=== PATIENT | female | born 1930 | race Caucasian/White ===

== ENCOUNTER 2017-04-12 10:55 | Inpatient (IN) | payer OTHER, BC ==
--- NOTE | 2017-04-12 10:56 | PDOC ---
Attending Attestation - Resident Resident Name: Kaushal Muhammad - HPI HPI: 04/12/17 11:50 Pt presents to the ED complaining of severe flank pain, nausea and vomiting that have been persistent for 5 days. Patient was seen in the ED 5 days ago for the same complaint, and found to have a renal stone. CT on 04/07 showed 8mm stone with moderate hydroureter. Patient has continued to experience pain despite oxycodone. Denies fever or dysuria. 04/12/17 12:02 - Physicial Exam PE: 04/12/17 12:08 agree with resident exam. Patient is actively vomiting on my exam. Abdomen is non tender. + CVA Tenderness. Appears uncomfortable. - Medical Decision Making 04/12/17 12:11 Pt presemts to the ED complaining of persistent nausea, vomiting and flank pain after diagnosed with renal stone 5 days ago. Given that her pain has not resolved after 5 days, I believe that she will need surgical intervention in order for the stone to pass. Will admit to medicine. Labs also show severe hyponatremia. Will consult urology and renal.
[2017-04-12] MEDS ORDERED: morphine CARPU-JECT 2 MG/1 ML DISP.SYRIN IVPUSH ONE (11:20)
[2017-04-12] MEDS ORDERED: ONDANSETRON 4 MG/2 ML VIAL IVPUSH ONE (11:20)
[2017-04-12] MEDS ORDERED: morphine CARPU-JECT 2 MG/1 ML DISP.SYRIN ONE (11:21)
[2017-04-12] MEDS ORDERED: ONDANSETRON 4 MG/2 ML VIAL ONE ×2 (11:22→15:36)
--- NOTE | 2017-04-12 11:27 | PDOC ---
History of Present Illness - General Chief Complaint: Pain, Acute Stated Complaint: FLANK PAIN - History of Present Illness Initial Comments: 04/12/17 11:22 86 yr old F with h/o HTN, hypothryoidism, uterine ca. s/p hysterectomy last year , and recent L ureteral stone who presents with left sided flank and lower abdominal pain. Patient reports worsening and unremitting (03/09) crampy colicky left flank/side pain and diffuse lower abdominal pain this AM, despite having no pain yesterday. + Nausea/dry retching without vomitting this AM. Pain refractory to Ibrupforen 400 mg, Tylenol 325 mg this AM, and 1/2 (0.5) Oxycodone tab. Endorses decreased urinary frequency, and lightheadedness. Denies fevers/chills, dysuria, hematuria. Prior CT (04/08) read L 8 mm ureteral stone with mild hydronephrosis. Reports that she was unable to obtain f/u urology appointment with Dr. Adame. PCP Dr. Jeyson Jernigan. Patient ate breakfast this AM. No chest pain, SOB, diarrhea constipation, blood per rectum,vaginal bleed, LOC. 04/12/17 15:26 Past History - Past Medical History Allergies/Adverse Reactions: Allergies Allergy/AdvReac Type Severity Reaction Status Date / Time cephalexin monohydrate Allergy Severe Verified 04/12/17 10:56 [From Keflex] Penicillins Allergy Severe Verified 04/12/17 10:56 Home Medications: Ambulatory Orders Levothyroxine [Synthroid -] 125 mcg PO DAILY 11/01/15 Losartan/Hydrochlorothiazide [Losartan-Hctz 100-12.5 mg Tab] 1 tab PO DAILY 08/13 Metoprolol Tartrate [Lopressor -] 25 mg PO HS 11/01/15 Acetaminophen [Tylenol] 325 mg PO QID #30 tablet 04/08/17 Ibuprofen 400 mg PO QID #30 tablet 04/08/17 Oxycodone HCl 0.5 tablet PO QID PRN #8 tablet MDD 2 tablets 04/08/17 Tamsulosin HCl [Flomax] 0.4 mg PO DAILY #7 capsule 04/08/17 Ondansetron [Zofran Odt -] 4 - 8 mg SL BID #20 od.tablet 04/10/17 Cholecalciferol (Vitamin D3) [Vitamin D3] 1,000 unit PO DAILY 04/12/17 Anemia: No COPD: No HTN: Yes Thyroid Disease: Yes (HYPOTHYROIDISM) - Surgical History Appendectomy: Yes ( A CHILD) - Suicide/Smoking/Psychosocial Hx Smoking History: Never smoked Have you smoked in the past 12 months: No Hx Alcohol Use: No Drug/Substance Use Hx: No Substance Use Type: None Hx Substance Use Treatment: No Review of Systems - Review of Systems Comments:: 04/12/17 11:53 GENERAL/CONSTITUTIONAL: No fever or chills. No weakness. HEAD, EYES, EARS, NOSE AND THROAT: No change in vision. No ear pain or discharge. No sore throat.- CARDIOVASCULAR: No chest pain or shortness of breath RESPIRATORY: No cough, wheezing, or hemoptysis. GASTROINTESTINAL: No nausea, vomiting, diarrhea or constipation. GENITOURINARY: No dysuria, frequency, or change in urination. MUSCULOSKELETAL: No joint or muscle swelling or pain. No neck or back pain. SKIN: No rash NEUROLOGIC: No headache, vertigo, loss of consciousness, or change in strength/ sensation. ENDOCRINE: No increased thirst. No abnormal weight change HEMATOLOGIC/LYMPHATIC: No anemia, easy bleeding, or history of blood clots. ALLERGIC/IMMUNOLOGIC: No hives or skin allergy. *Physical Exam - Vital Signs Last Vital Signs Temp Pulse Resp BP Pulse Ox 98.3 F 59 L 18 158/77 95 04/12/17 10:55 04/12/17 10:55 04/12/17 10:55 04/12/17 10:55 04/12/17 10:55 - Physical Exam Comments: 04/12/17 11:53 GENERAL: Awake, alert, and fully oriented, and anxious appearing. HEAD: No signs of trauma, normocephalic, atraumatic EYES: PERRLA, EOMI, sclera anicteric, conjunctiva clear ENT: hearing grossly normal, nares patent, oropharynx clear without exudates. Moist mucosa NECK: Normal ROM,no JVD, or masses LUNGS: No distress, speaks full sentences, clear to auscultation bilaterally HEART: Regular rate and rhythm, normal S1 and S2, no murmurs, rubs or gallops, peripheral pulses normal and equal bilaterally. ABDOMEN: Soft, nontender, normoactive bowel sounds. No guarding, no rebound. No masses. Neg CVA ttp. Mild suprpaubic ttp. Absent rigidity. Neg logan sign or McBurney point ttp . EXTREMITIES : Normal inspection, Normal range of motion, no edema. No clubbing or cyanosis. SKIN: Warm, Dry, normal turgor, no rashes or lesions noted. ED Treatment Course - LABORATORY CBC & Chemistry Diagram: 04/12/17 11:15 04/12/17 11:15 - RADIOLOGY Radiology Studies Ordered: Category Date Time Status KIDNEY / RENAL US [US] Stat Ultrasound 04/12/17 11:19 Ordered Medical Decision Making - Medical Decision Making 04/12/17 13:10 86 yr old F with h/o HTN, hypothryoidism, uterine ca. s/p hysterectomy last year , and recent L ureteral stone who presents with L crampy colicky left flank/ side pain and diffuse lower abdominal pain this AM,following recent ED visit with L 8 mm ureteral stone with mild hydronephrosis. Endorses decreased urinary frequency, and lightheartedness. Pain refractory to Ibrupforen 400 mg, Tylenol 325 mg this AM, and 1/2 (0.5) Oxycodone tab. Denies fevers/chills, dysuria, hematuria. Physical exam is benign and patient hemodynamically stable. Reports that she was unable to obtain f/u urology appointment with Dr. Adame. PCP Dr. Jeyson Jernigan. Patient ate breakfast this AM. We will obtain ultrasound to assess for increased obstructive uropathy, or worsening of current condition. Consider pyelonephritis in setting of N/V, and worsening flank pain. ED Course: CBC, CMP, UA, EKG CBC: WBC 13.0-->12.3 Na: 123, K+ 3.4 CR: 1.3 Pt. Treated with zofran, morphine, and hydromorphone. Spoke to Dr. Eliud Madrid and he will proceed with stent placement at [facility]. Will admit to Dr. Grimm Inpatient Med/Surg. Patient to remain NPO. Last meal at 0630. 04/12/17 15:47 UA: 1 + Leuk esterase, 1 + blood 04/12/17 15:47 Patient stable. Discussed transfer with patient and plans for stent placement today, as well as admission for pain control and hyponatremia management. Pt. stable for D/c. *DC/Admit/Observation/Transfer Diagnosis at time of Disposition: Kidney stone on left side - Discharge Dispostion Condition at time of disposition: Fair Admit: Yes - Referrals Referrals: Jeyson Santos MD [Primary Care Provider] - - Patient Instructions - Post Discharge Activity
[2017-04-12 11:33] LABS: BASOPHIL 0.7 % (0-2.0); EOSINOPHIL 0.4 % (0-4.5); MCH 20.6 pg (25.7-33.7); MCHC 31.9 g/dl (32.0-36.0); MEAN CELL VOLUME 64.6 fl (80-96); MEAN PLT VOLUME 8.8 fl (7.5-11.1); NEUTROPHILS 87.1 % (42.8-82.8); PLATELET COUNT 226 K/MM3 (134-434); RDW 14.1 % (11.6-15.6); WHITE BLOOD COUNT 12.3 K/mm3 (4.0-10.8)
[2017-04-12] MEDS ORDERED: METOCLOPRAMIDE HCL INJECTION 10 MG/2 ML VIAL IVPUSH ONE (11:41)
[2017-04-12 11:45] LABS: ALBUMIN 4.3 g/dl (3.5-5.0); ALK PHOS 56 U/L (32-92); ANION GAP 11 (8-16); BILIRUBIN,TOTAL 1.1 mg/dl (0.2-1.0); CALCIUM 8.7 mg/dl (8.4-10.2); CO2 24 mmol/L (22-28); CREATININE 1.3 mg/dl (0.6-1.3); GLUCOSE,RANDOM 146 mg/dl (74-106); SGOT/AST 26 U/L (10-42); SGPT/ALT 21 U/L (10-40); TOT PROT 6.8 g/dl (6.4-8.3)
[2017-04-12] MEDS ORDERED: HYDROmorphone HCL CARPU-JECT 1 MG/1 ML DISP.SYRIN IVPB ONE (11:45)
[2017-04-12] MEDS ORDERED: SODIUM CHLORIDE 1,000 ML IV STA (11:51)
[2017-04-12] MEDS ORDERED: HYDROmorphone HCL CARPU-JECT 1 MG/1 ML DISP.SYRIN ONE (11:51)
[2017-04-12] MEDS ORDERED: SODIUM CHLORIDE 1,000 ML IV SCH (12:15)
[2017-04-12 13:51] LABS: HYPOCHROMIA 1+; MICROCYTOSIS 2+; TEAR DROP CELLS 1+
[2017-04-12 13:52] LABS: OVALOCYTE 1+
[2017-04-12 13:57] LABS: PH,URINE 5.5 (4.5-8); URINE APPEARANCE Clear; URINE BILIRUBIN Negative (NEGATIVE); URINE GLUCOSE (UA) Negative (NEGATIVE); URINE KETONE 1+ (NEGATIVE); URINE NITRITE Negative (NEGATIVE); URINE UROBILINOGEN 0.2 (0.2-1.0)
[2017-04-12 14:08] LABS: URINE BLOOD Trace-intact (NEGATIVE); URINE LEUK ESTERASE 1+ (NEGATIVE); URINE PROTEIN 1+ (NEGATIVE)
[2017-04-12 14:09] LABS: URINE COLOR YELLOW
[2017-04-12] MEDS ORDERED: ONDANSETRON 4 MG/2 ML VIAL IVPB ONE (15:35)
[2017-04-12 16:21] VITALS: BMI 28.5
--- NOTE | 2017-04-12 16:49 | CONSULT ---
Consult Consult Specialty:: Nephrology Reason for Consultation:: hyponatremia - History of Present Illness Chief Complaint: left side flank pain History of Present Illness: Pt is an 86 year old female with pmhx of htn, hypothyroidism, uterine ca s/p hysterectomy, and nephrolithiasis who presents to the ER with flank pain. She was found to have hydronephrosis. I was called to evaluate the pt for hyponatremia. She has nausea and has not eaten much. She is on HCTZ at home for htn. She has been taking her diuretics. She denies chest pain or shortness of breath. She has also been taking ibuprofen. She does have an 8mm stone. - History Source History Provided By: Patient, Medical Record - Past Medical History Cardio/Vascular: Yes: HTN Renal/: Yes: Renal Calculi ...: No Heme/Onc: Yes: Other (uterin cancer) - Past Surgical History Past Surgical History: Yes: Hysterectomy - Alcohol/Substance Use Hx Alcohol Use: No - Smoking History Smoking history: Never smoked Have you smoked in the past 12 months: No Home Medications - Allergies Allergies/Adverse Reactions: Allergies Allergy/AdvReac Type Severity Reaction Status Date / Time cephalexin monohydrate Allergy Severe Verified 04/12/17 10:56 [From Keflex] Penicillins Allergy Severe Verified 04/12/17 10:56 - Home Medications Home Medications: Ambulatory Orders Levothyroxine [Synthroid -] 125 mcg PO DAILY 11/01/15 Losartan/Hydrochlorothiazide [Losartan-Hctz 100-12.5 mg Tab] 1 tab PO DAILY 08/13 Metoprolol Tartrate [Lopressor -] 25 mg PO HS 11/01/15 Acetaminophen [Tylenol] 325 mg PO QID #30 tablet 04/08/17 Ibuprofen 400 mg PO QID #30 tablet 04/08/17 Oxycodone HCl 0.5 tablet PO QID PRN #8 tablet MDD 2 tablets 04/08/17 Tamsulosin HCl [Flomax] 0.4 mg PO DAILY #7 capsule 04/08/17 Ondansetron [Zofran Odt -] 4 - 8 mg SL BID #20 od.tablet 04/10/17 Cholecalciferol (Vitamin D3) [Vitamin D3] 1,000 unit PO DAILY 04/12/17 Family Disease History - Family Disease History Family History: Denies Review of Systems - Review of Systems Constitutional: reports: Chills, Malaise Eyes: reports: No Symptoms HENT: reports: No Symptoms Neck: reports: No Symptoms Cardiovascular: reports: No Symptoms Respiratory: reports: No Symptoms Gastrointestinal: reports: Nausea Genitourinary: reports: Flank Pain Musculoskeletal: reports: No Symptoms Integumentary: reports: No Symptoms Neurological: reports: No Symptoms Endocrine: reports: No Symptoms Hematology/Lymphatic: reports: No Symptoms Psychiatric: reports: No Symptoms Physical Exam Vital Signs: Vital Signs Temperature 98.1 F 04/12/17 15:33 Pulse Rate 71 04/12/17 16:03 Respiratory Rate 20 04/12/17 16:03 Blood Pressure 164/91 04/12/17 16:03 O2 Sat by Pulse Oximetry (%) 100 04/12/17 16:03 Constitutional: Yes: Anxious Eyes: Yes: Conjunctiva Clear HENT: Yes: Atraumatic Neck: Yes: Supple Cardiovascular: Yes: S1, S2 Respiratory: Yes: CTA Bilaterally Gastrointestinal: Yes: Normal Bowel Sounds, Soft Renal/: Yes: CVA Tenderness - Left, CVA Tenderness - Right Musculoskeletal: Yes: WNL Edema: No Neurological: Yes: Oriented Psychiatric: Yes: Oriented Labs: CBC, BMP 04/12/17 11:15 04/12/17 11:15 Laboratory Tests 04/08/17 04/12/17 04/12/17 14:32 11:15 11:15 WBC 12.3 H Hgb 11.9 Sodium 126 L 123 L* Potassium 3.4 L Chloride 88 L D Carbon Dioxide 24 Anion Gap 11 BUN 27 H Creatinine 1.2 1.3 Imaging - Results Ultrasound: Report Reviewed (bilateral hydro) Problem List - Problems (1) Hyponatremia Code(s): E87.1 - HYPO-OSMOLALITY AND HYPONATREMIA (2) Hydronephrosis Code(s): N13.30 - UNSPECIFIED HYDRONEPHROSIS (3) Kidney stone on left side Code(s): N20.0 - CALCULUS OF KIDNEY Assessment/Plan Current Medications Generic Name Dose Route Start Last Admin Trade Name Freq PRN Reason Stop Dose Admin Sodium Chloride 1,000 mls @ 100 mls/hr 04/12/17 12:15 04/12/17 12:16 Normal Saline - IV 100 mls/hr ASDIR KYRA Administration Impression 1. hyponatremia 2. hydronephrosis 3. hx uterin cancer 4. nephrolithiasis 5. hypothyroidism 6. nausea Plan - repeat serum sodium - cont with fluids - would stop hctz - repeat potassium and magnesium levels - will send hyponatremia workup - check tsh - check cortisol - will need urology follow up Dr Fernandez
[2017-04-12] MEDS ORDERED: PROMETHAZINE HCL 25 MG/1 ML VIAL IM PRN (16:50)
[2017-04-12] MEDS ORDERED: ONDANSETRON 4 MG/2 ML VIAL IVPUSH PRN (16:50)
[2017-04-12] MEDS ORDERED: ACETAMINOPHEN 325 MG TABLET (FP) PO PRN (16:50)
--- NOTE | 2017-04-12 16:54 | HP ---
Admitting History and Physical - Primary Care Physician PCP: Jeyson Santos - Admission Chief Complaint: I have a kidney stone History of Present Illness: Ms Louie is an 86 year old female who was sent over from [place] with hydronephrosis secondary to ureterolithiasis and symptomatic hyponatremia. She says she was doing well until last where she developed L sided abdominal and flank pain. She says that she presented to the ED where she was found to have a kidney stone. She was hydrated and given morphine and was feeling much better and was discharged home. She was doing well after discharge from the ED and was set up with an outpatient appointment with urology. She says last night/early this morning the pain recurred. It is crampy and dull in nature. It is constant but at times it is worse. She says at its worst it is a 10/10. It does not radiate. She has nausea and dry heaving associated with it. She denies fevers, chills, lightheadedness, dizziness, passing out, chest pain or pressure, shortness of breath, diarrhea, constipation, difficulty or pain on urination, or swelling. She originally presented to [facility] and was transferred here for stone removal and treatment of hyponatremia. History Source: Patient Limitations to Obtaining History: Clinical Condition - Past Medical History Cardiovascular: Yes: HTN Renal/: Yes: Renal Calculi ...: No Heme/Onc: Yes: Other (uterin cancer) - Past Surgical History Past Surgical History: Yes: Hysterectomy - Smoking History Smoking history: Never smoked Have you smoked in the past 12 months: No - Alcohol/Substance Use Hx Alcohol Use: No History of Substance Use: reports: None - Social History ADL: Independent History of Recent Travel: No Home Medications - Allergies Allergies/Adverse Reactions: Allergies Allergy/AdvReac Type Severity Reaction Status Date / Time cephalexin monohydrate Allergy Severe Verified 04/12/17 10:56 [From Keflex] Penicillins Allergy Severe Verified 04/12/17 10:56 - Home Medications Home Medications: Ambulatory Orders Levothyroxine [Synthroid -] 125 mcg PO DAILY 11/01/15 Losartan/Hydrochlorothiazide [Losartan-Hctz 100-12.5 mg Tab] 1 tab PO DAILY 08/13 Metoprolol Tartrate [Lopressor -] 25 mg PO HS 11/01/15 Acetaminophen [Tylenol] 325 mg PO QID #30 tablet 04/08/17 Ibuprofen 400 mg PO QID #30 tablet 04/08/17 Oxycodone HCl 0.5 tablet PO QID PRN #8 tablet MDD 2 tablets 04/08/17 Tamsulosin HCl [Flomax] 0.4 mg PO DAILY #7 capsule 04/08/17 Ondansetron [Zofran Odt -] 4 - 8 mg SL BID #20 od.tablet 04/10/17 Cholecalciferol (Vitamin D3) [Vitamin D3] 1,000 unit PO DAILY 04/12/17 Family Disease History - Family Disease History Family Disease History: Other: Brother (Parkinsons) Review of Systems Findings/Remarks: Full review of systes obtained, as per HPI and otherwise negative Physical Examination Vital Signs: Vital Signs Temperature 36.7 C 04/12/17 15:33 Pulse Rate 71 04/12/17 16:03 Respiratory Rate 20 04/12/17 16:03 Blood Pressure 164/91 04/12/17 16:03 O2 Sat by Pulse Oximetry (%) 100 04/12/17 16:03 Constitutional: Yes: Well Nourished, Moderate Distress Eyes: Yes: Conjunctiva Clear, EOM Intact, PERRL HENT: Yes: Atraumatic, Normocephalic Cardiovascular: Yes: Regular Rate and Rhythm. No: Gallop, Murmur, Rub Respiratory: Yes: Regular, CTA Bilaterally. No: Rales, Rhonchi, Wheezes Gastrointestinal: Yes: Soft, Hypoactive Bowel Sounds, Tenderness. No: Distention Renal/: Yes: CVA Tenderness - Left Extremities: Yes: WNL Edema: No Labs: CBC, BMP 04/12/17 11:15 04/12/17 11:15 Imaging - Results Ultrasound: Report Reviewed Problem List - Problems (1) Hyponatremia Assessment/Plan: -patient with symptomatic hyponatremia -case d/w Dr Fernandez from nephrology -recheck labs -hold HCTZ -nephrology to determine rate of IVF, does not need hypertonic saline currently Code(s): E87.1 - HYPO-OSMOLALITY AND HYPONATREMIA (2) Kidney stone on left side Assessment/Plan: -urology consulted -unstable for OR tonight -planning for nephrostomy tube in am once stabilized Code(s): N20.0 - CALCULUS OF KIDNEY (3) Hydronephrosis Assessment/Plan: -as above Code(s): N13.30 - UNSPECIFIED HYDRONEPHROSIS Qualifiers: Hydronephrosis type: with renal calculous obstruction Qualified Code(s): N13.2 - Hydronephrosis with renal and ureteral calculous obstruction (4) HTN (hypertension) Assessment/Plan: -normally on losartan, HCTZ, and metoprolol -holding HCTZ secondary to hyponatremia -continue metoprolol -prn hydralazine Code(s): I10 - ESSENTIAL (PRIMARY) HYPERTENSION (5) Hypothyroid Assessment/Plan: -continue synthroid Code(s): E03.9 - HYPOTHYROIDISM, UNSPECIFIED
--- NOTE | 2017-04-12 17:33 | CONSULT ---
Consult - text type - Consultation Consultation Note: CC: left renal colic hpi: patient with history of left 8mm ureteral stone who is in severe discomfort with nausea and vomiting. Patient is not a surgical candidate due to the hyponatremia. The patient was emergently scheduled for a left stent however anesthesia requires normalization of the sodium level The patient is afebrile and denies fever or chills. The patient is perfectly luscent on evaluation without mental status changes. Discussed options with family present. PE vss; afeb abd-left CVAT present CT scan/renal sonogram/labs reviewed discussed case with Drs. Fernandez and Tevin as well as Dr. Quigley of anestesia imp hyponatremia renal colic left hydronephrosis with left ureteral stone. plan left percutaneous nephrostomy tube in am discussed with patient and medical staff x45 minutes
[2017-04-12] MEDS ORDERED: hydrALAZINE HCL 20 MG/ML VIAL IVPUSH PRN (17:34)
[2017-04-12] MEDS: morphine SULFATE 4 MG/ML VIAL IVPUSH PRN ×2 (17:56→22:01)
[2017-04-12 19:31] LABS: ALBUMIN 3.8 g/dl (3.4-5.0); ANION GAP 11 (8-16); BILIRUBIN,TOTAL 0.7 mg/dL (0.2-1.0); CALCIUM 8.4 mg/dL (8.5-10.1); CO2 25 mmol/L (21-32); CREATININE 1.3 mg/dL (0.55-1.02); GLUCOSE,RANDOM 124 mg/dL (74-106); SGOT/AST 19 U/L (15-37); SGPT/ALT 25 U/L (12-78); TOT PROT 6.7 g/dl (6.4-8.2)
[2017-04-12 19:34] LABS: ALK PHOS 66 U/L (45-117)
[2017-04-12 20:00] LABS: OSMOLALITY,SERUM 264 mosm/kg (278-305)
[2017-04-12] MEDS: METOPROLOL TARTRATE 25 MG TABLET (FP) PO SCH (21:08)
[2017-04-12] MEDS: SODIUM CHLORIDE 1,000 ML IV SCH (22:20)
[2017-04-13] MEDS: morphine SULFATE 4 MG/ML VIAL IVPUSH PRN ×2 (01:49→06:05)
[2017-04-13] MEDS: LEVOTHYROXINE NA 125 MCG TABLET (FP) PO SCH (06:03)
[2017-04-13] MEDS ORDERED: hydrALAZINE HCL 20 MG/ML VIAL IVPB PRN (07:59)
[2017-04-13 08:29] LABS: BASOPHIL 0.8 % (0-2.0); EOSINOPHIL 0.1 % (0-4.5); MCHC 31.4 g/dl (32.0-36.0); MEAN CELL VOLUME 62.1 fl (80-96); MEAN PLT VOLUME 8.7 fl (7.5-11.1); PLATELET COUNT 254 K/MM3 (134-434); RDW 15.6 % (11.6-15.6); WHITE BLOOD COUNT 15.4 K/mm3 (4.0-10.0)
[2017-04-13 08:33] LABS: MCH 19.5 pg (25.7-33.7)
[2017-04-13 09:10] LABS: ANION GAP 12 (8-16); CALCIUM 8.8 mg/dL (8.5-10.1); CO2 23 mmol/L (21-32); CREATININE 1.4 mg/dL (0.55-1.02); GLUCOSE,RANDOM 117 mg/dL (74-106); MAGNESIUM 1.7 mg/dL (1.8-2.4); PHOSPHOROUS 3.6 mg/dL (2.5-4.9)
[2017-04-13 09:18] LABS: THYROID STIMULATING HORMONE 9.31 uIU/ml (0.358-3.74)
[2017-04-13] MEDS: ENOXAPARIN NA (PORCINE) 40 MG/0.4 ML DISP.SYRIN SQ SCH (10:12)
[2017-04-13 10:15] LABS: INR 1.14 (0.82-1.09); PROTHROMBIN TIME (PATIENT) 12.9 SEC (9.98-11.88)
--- NOTE | 2017-04-13 14:18 | PN ---
Progress Note, Physician Chief Complaint: Ms Louie says she is feeling much better. Flank pain has resolved. No longer with nausea. No cp or sob and tolerating diet. - Current Medication List Current Medications: Active Medications Acetaminophen (Tylenol -) 650 mg PO Q4H PRN PRN Reason: FEVER OR PAIN Enoxaparin Sodium (Lovenox -) 40 mg SQ DAILY [facility] Last Admin: 04/13/17 10:12 Dose: Not Given Hydralazine HCl (Apresoline Injection -) 10 mg IVPB Q8H PRN PRN Reason: HYPERTENSION Last Admin: 04/13/17 09:27 Dose: 10 mg Sodium Chloride (Normal Saline -) 1,000 mls @ 75 mls/hr IV ASDIR [facility] Last Admin: 04/12/17 22:20 Dose: 75 mls/hr Levothyroxine Sodium (Synthroid -) 125 mcg PO DAILY@0700 [facility] Last Admin: 04/13/17 06:03 Dose: Not Given Metoprolol Tartrate (Lopressor -) 25 mg PO HS [facility] Last Admin: 04/12/17 21:08 Dose: 25 mg Morphine Sulfate (Morphine Sulfate) 1 mg IVPUSH Q4H PRN PRN Reason: PAIN Last Admin: 04/13/17 06:05 Dose: 1 mg Ondansetron HCl (Zofran Injection) 4 mg IVPUSH Q6H PRN PRN Reason: NAUSEA Promethazine HCl (Phenergan Injection -) 25 mg IM Q6H PRN PRN Reason: NAUSEA AND/OR VOMITING - Objective Vital Signs: Vital Signs Temperature 36.6 C 04/13/17 07:58 Pulse Rate 92 H 04/13/17 12:36 Respiratory Rate 15 04/13/17 12:36 Blood Pressure 153/92 04/13/17 12:36 O2 Sat by Pulse Oximetry (%) 100 04/13/17 12:36 Constitutional: Yes: Well Nourished, No Distress, Calm Cardiovascular: Yes: Regular Rate and Rhythm. No: Gallop, Murmur, Rub Respiratory: Yes: Regular, CTA Bilaterally. No: Rales, Rhonchi, Wheezes Gastrointestinal: Yes: Normal Bowel Sounds, Soft. No: Distention, Tenderness Genitourinary: Yes: Other (nephrostomy tube with bag in place) Edema: No Labs: CBC, BMP 04/13/17 06:00 04/13/17 07:00 INR, PTT INR 1.14 (0.82-1.09) 04/13/17 08:40 Problem List - Problems (1) Hyponatremia Code(s): E87.1 - HYPO-OSMOLALITY AND HYPONATREMIA (2) Kidney stone on left side Code(s): N20.0 - CALCULUS OF KIDNEY (3) Hydronephrosis Code(s): N13.30 - UNSPECIFIED HYDRONEPHROSIS Qualifiers: Hydronephrosis type: with renal calculous obstruction Qualified Code(s): N13.2 - Hydronephrosis with renal and ureteral calculous obstruction (4) HTN (hypertension) Code(s): I10 - ESSENTIAL (PRIMARY) HYPERTENSION (5) Hypothyroid Code(s): E03.9 - HYPOTHYROIDISM, UNSPECIFIED Assessment/Plan (1) Hyponatremia Assessment/Plan: -case d/w Dr Fernandez -continue IVF -sodium improving as expected Code(s): E87.1 - HYPO-OSMOLALITY AND HYPONATREMIA (2) Kidney stone on left side Assessment/Plan: -urology consulted -s/p nephrostomy tube with relief of symptoms -urology to evaluate and comment on [facility] plan Code(s): N20.0 - CALCULUS OF KIDNEY (3) Hydronephrosis Assessment/Plan: -as above Code(s): N13.30 - UNSPECIFIED HYDRONEPHROSIS Qualifiers: Hydronephrosis type: with renal calculous obstruction Qualified Code(s): N13.2 - Hydronephrosis with renal and ureteral calculous obstruction (4) HTN (hypertension) Assessment/Plan: -normally on losartan, HCTZ, and metoprolol -holding HCTZ secondary to hyponatremia -continue metoprolol -prn hydralazine Code(s): I10 - ESSENTIAL (PRIMARY) HYPERTENSION (5) Hypothyroid Assessment/Plan: -continue synthroid -TSH elevated but may be secondary to stress -will check FT4 to see if synthroid needs increasing Code(s): E03.9 - HYPOTHYROIDISM, UNSPECIFIED
--- NOTE | 2017-04-13 15:23 | PN ---
Progress Note, Physician History of Present Illness: Pt seen and examined at bedside. She had the nephrostomy tube placed today. She says she feels much better. She denies shortness of breath. She denies fevers or chills. Her flank pain is improved. - Current Medication List Current Medications: Active Medications Acetaminophen (Tylenol -) 650 mg PO Q4H PRN PRN Reason: FEVER OR PAIN Enoxaparin Sodium (Lovenox -) 40 mg SQ DAILY [facility] Last Admin: 04/13/17 10:12 Dose: Not Given Hydralazine HCl (Apresoline Injection -) 10 mg IVPB Q8H PRN PRN Reason: HYPERTENSION Last Admin: 04/13/17 09:27 Dose: 10 mg Sodium Chloride (Normal Saline -) 1,000 mls @ 75 mls/hr IV ASDIR [facility] Last Admin: 04/12/17 22:20 Dose: 75 mls/hr Levothyroxine Sodium (Synthroid -) 125 mcg PO DAILY@0700 [facility] Last Admin: 04/13/17 06:03 Dose: Not Given Metoprolol Tartrate (Lopressor -) 25 mg PO HS [facility] Last Admin: 04/12/17 21:08 Dose: 25 mg Morphine Sulfate (Morphine Sulfate) 1 mg IVPUSH Q4H PRN PRN Reason: PAIN Last Admin: 04/13/17 06:05 Dose: 1 mg Ondansetron HCl (Zofran Injection) 4 mg IVPUSH Q6H PRN PRN Reason: NAUSEA Promethazine HCl (Phenergan Injection -) 25 mg IM Q6H PRN PRN Reason: NAUSEA AND/OR VOMITING - Objective Vital Signs: Vital Signs Temperature 98.2 F 04/13/17 15:01 Pulse Rate 78 04/13/17 15:01 Respiratory Rate 16 04/13/17 15:01 Blood Pressure 112/67 04/13/17 15:01 O2 Sat by Pulse Oximetry (%) 100 04/13/17 12:36 Constitutional: Yes: Calm Eyes: Yes: Conjunctiva Clear HENT: Yes: Atraumatic Neck: Yes: Supple Cardiovascular: Yes: S1, S2 Respiratory: Yes: CTA Bilaterally Gastrointestinal: Yes: Normal Bowel Sounds, Soft Genitourinary: Yes: Other (left nephrostomy) Musculoskeletal: Yes: WNL Extremities: Yes: WNL Edema: No Integumentary: Yes: WNL Neurological: Yes: Oriented Psychiatric: Yes: Oriented Labs: CBC, BMP 04/13/17 06:00 04/13/17 07:00 INR, PTT INR 1.14 (0.82-1.09) 04/13/17 08:40 Problem List - Problems (1) Hyponatremia Code(s): E87.1 - HYPO-OSMOLALITY AND HYPONATREMIA (2) Hydronephrosis Code(s): N13.30 - UNSPECIFIED HYDRONEPHROSIS Qualifiers: Hydronephrosis type: with renal calculous obstruction Qualified Code(s): N13.2 - Hydronephrosis with renal and ureteral calculous obstruction (3) Kidney stone on left side Code(s): N20.0 - CALCULUS OF KIDNEY Assessment/Plan Current Medications Generic Name Dose Route Start Last Admin Trade Name Freq PRN Reason Stop Dose Admin Acetaminophen 650 mg 04/12/17 16:50 Tylenol - PO Q4H PRN FEVER OR PAIN Enoxaparin Sodium 40 mg 04/13/17 10:00 04/13/17 10:12 Lovenox - SQ Not Given DAILY [facility] Hydralazine HCl 10 mg 04/13/17 07:59 04/13/17 09:27 Apresoline Injection - IVPB 10 mg Q8H PRN Administration HYPERTENSION Sodium Chloride 1,000 mls @ 75 mls/hr 04/12/17 22:30 04/12/17 22:20 Normal Saline - IV 75 mls/hr ASDIR [facility] Administration Levothyroxine Sodium 125 mcg 04/13/17 07:00 04/13/17 06:03 Synthroid - PO Not Given DAILY@0700 [facility] Metoprolol Tartrate 25 mg 04/12/17 22:00 04/12/17 21:08 Lopressor - PO 25 mg HS [facility] Administration Morphine Sulfate 1 mg 04/12/17 16:50 04/13/17 06:05 Morphine Sulfate IVPUSH 1 mg Q4H PRN Administration PAIN Ondansetron HCl 4 mg 04/12/17 16:50 Zofran Injection IVPUSH Q6H PRN NAUSEA Promethazine HCl 25 mg 04/12/17 16:50 Phenergan Injection - IM Q6H PRN NAUSEA AND/OR VOMITING Laboratory Tests 04/13/17 04/13/17 07:00 07:00 TSH 9.31 H Cortisol AM Sample Pending Laboratory Tests 04/13/17 07:00 Potassium 3.6 Magnesium 1.7 L Impression 1. hyponatremia 2. hydronephrosis 3. hx uterin cancer 4. nephrolithiasis 5. hypothyroidism 6. nausea 7. HTN Plan - sodium is improving - cont with saline - tsh is elevated consider increasing dose of synthroid - discussed with urology last night - hctz on hold - follow urine studies - followed repeat sodium last night - cont to monitor sodium levels - replace magnesium - will need urology follow up - discussed plan with pt and with nursing staff - monitor bp closely Dr Fernandez
--- NOTE | 2017-04-13 15:56 | EKG ---
Test Reason : Blood Pressure : / mmHG Vent. Rate : 058 BPM Atrial Rate : 058 BPM P-R Int : 160 ms QRS Dur : 102 ms QT Int : 432 ms P-R-T Axes : 019 015 032 degrees QTc Int : 424 ms SINUS BRADYCARDIA BASELINE ARTIFACT NONSPECIFIC T WAVE ABNORMALITY ABNORMAL ECG WHEN COMPARED WITH ECG OF 08-APR-2017 14:41, PREMATURE ATRIAL COMPLEXES ARE NO LONGER PRESENT INVERTED T WAVES HAVE REPLACED NONSPECIFIC T WAVE ABNORMALITY IN ANTERIOR LEADS REPEAT EKG IF CLINICALLY INDICATED Confirmed by CRISTOFER CASILLAS MD ([id number] on 04/13/2017 3:56:24 PM Referred By: MD AMOR Confirmed By:CRISTOFER CASILLAS MD
[2017-04-13] MEDS: METOPROLOL TARTRATE 25 MG TABLET (FP) PO SCH (21:10)
[2017-04-13] MEDS: SODIUM CHLORIDE 1,000 ML IV SCH (22:47)
[2017-04-14] MEDS: SODIUM CHLORIDE 1,000 ML IV SCH ×2 (05:55→22:25)
[2017-04-14] MEDS: LEVOTHYROXINE NA 125 MCG TABLET (FP) PO SCH (06:11)
[2017-04-14 08:20] LABS: BASOPHIL 0.5 % (0-2.0); EOSINOPHIL 0.1 % (0-4.5); MCHC 31.7 g/dl (32.0-36.0); MEAN CELL VOLUME 62.5 fl (80-96); MEAN PLT VOLUME 8.3 fl (7.5-11.1); NEUTROPHILS 85.9 % (42.8-82.8); PLATELET COUNT 230 K/MM3 (134-434); RDW 15.6 % (11.6-15.6); WHITE BLOOD COUNT 12.2 K/mm3 (4.0-10.0)
--- NOTE | 2017-04-14 08:22 | CONSULT ---
Consult - text type - Consultation Consultation Note: urology consult cc: left ureteral stone s/p nephrostomy tube hpi: patient is doing well s/p a left percutaneous nephrostomy tube. Patient is comfortable and feels much better without the renal colic. She is eating well and is afebrile. PE afeb left percutaneous nephrostomy tube draining well imp left ureteral stone s/p percutaneous nephrostomy tube hyponatremia plan will schedule left ureteroscopic stone basketing and stent placement with removal of nephrostomy tube for late afternoon pending medical and anestesia clearance
[2017-04-14 08:30] LABS: MCH 19.8 pg (25.7-33.7)
[2017-04-14 09:04] LABS: ANION GAP 13 (8-16); CALCIUM 8.1 mg/dL (8.5-10.1); CO2 23 mmol/L (21-32); GLUCOSE,RANDOM 86 mg/dL (74-106); MAGNESIUM 1.7 mg/dL (1.8-2.4); PHOSPHOROUS 2.6 mg/dL (2.5-4.9)
[2017-04-14] MEDS ORDERED: MAGNESIUM SULF 50% (8.12 MEQ/2 ML-1 GM VIAL) IVPB ONE (10:00)
[2017-04-14] MEDS ORDERED: POTASSIUM CHLORIDE TABS 20 MEQ TABLET.ER (FP) PO ONE (10:00)
[2017-04-14] MEDS: ENOXAPARIN NA (PORCINE) 40 MG/0.4 ML DISP.SYRIN SQ SCH (10:02)
--- NOTE | 2017-04-14 11:12 | PN ---
Progress Note, Physician Chief Complaint: Ms Louie says she is feeling much better. Denies cp, sob, n/v. Pain completely resolved. - Current Medication List Current Medications: Active Medications Acetaminophen (Tylenol -) 650 mg PO Q4H PRN PRN Reason: FEVER OR PAIN Enoxaparin Sodium (Lovenox -) 40 mg SQ DAILY [facility] Last Admin: 04/14/17 10:02 Dose: Not Given Hydralazine HCl (Apresoline Injection -) 10 mg IVPB Q8H PRN PRN Reason: HYPERTENSION Last Admin: 04/13/17 09:27 Dose: 10 mg Sodium Chloride (Normal Saline -) 1,000 mls @ 75 mls/hr IV ASDIR [facility] Last Admin: 04/14/17 05:55 Dose: 75 mls/hr Levothyroxine Sodium (Synthroid -) 125 mcg PO DAILY@0700 [facility] Last Admin: 04/14/17 06:11 Dose: 125 mcg Metoprolol Tartrate (Lopressor -) 25 mg PO HS [facility] Last Admin: 04/13/17 21:10 Dose: 25 mg Morphine Sulfate (Morphine Sulfate) 1 mg IVPUSH Q4H PRN PRN Reason: PAIN Last Admin: 04/13/17 06:05 Dose: 1 mg Ondansetron HCl (Zofran Injection) 4 mg IVPUSH Q6H PRN PRN Reason: NAUSEA Last Admin: 04/13/17 22:47 Dose: 4 mg Promethazine HCl (Phenergan Injection -) 25 mg IM Q6H PRN PRN Reason: NAUSEA AND/OR VOMITING - Objective Vital Signs: Vital Signs Temperature 36.8 C 04/14/17 06:40 Pulse Rate 74 04/14/17 06:40 Respiratory Rate 20 04/14/17 06:40 Blood Pressure 140/87 04/14/17 06:40 O2 Sat by Pulse Oximetry (%) 95 04/13/17 20:55 Constitutional: Yes: Well Nourished, No Distress, Calm Cardiovascular: Yes: Regular Rate and Rhythm. No: Gallop, Murmur, Rub Respiratory: Yes: Regular, CTA Bilaterally. No: Rales, Rhonchi, Wheezes Gastrointestinal: Yes: Normal Bowel Sounds, Soft. No: Distention, Tenderness Extremities: Yes: WNL Edema: No Labs: CBC, BMP 04/14/17 06:50 04/14/17 06:50 INR, PTT INR 1.14 (0.82-1.09) 04/13/17 08:40 Problem List - Problems (1) Hyponatremia Code(s): E87.1 - HYPO-OSMOLALITY AND HYPONATREMIA (2) Kidney stone on left side Code(s): N20.0 - CALCULUS OF KIDNEY (3) Hydronephrosis Code(s): N13.30 - UNSPECIFIED HYDRONEPHROSIS Qualifiers: Hydronephrosis type: with renal calculous obstruction Qualified Code(s): N13.2 - Hydronephrosis with renal and ureteral calculous obstruction (4) HTN (hypertension) Code(s): I10 - ESSENTIAL (PRIMARY) HYPERTENSION (5) Hypothyroid Code(s): E03.9 - HYPOTHYROIDISM, UNSPECIFIED (6) Hypokalemia Code(s): E87.6 - HYPOKALEMIA (7) Hypomagnesemia Code(s): E83.42 - HYPOMAGNESEMIA Assessment/Plan (1) Hyponatremia Assessment/Plan: -much resolved and almost normal -nephrology following -will not continue on thiazide diuretic as most likely the cause (or at least exacerbated it with nephrolithiasis) -safe for procedure from this standpoint Code(s): E87.1 - HYPO-OSMOLALITY AND HYPONATREMIA (2) Kidney stone on left side Assessment/Plan: -urology consulted and appreciate assistance -plan for stone removal today -medically stable for procedure Code(s): N20.0 - CALCULUS OF KIDNEY (3) Hydronephrosis Assessment/Plan: -as above Code(s): N13.30 - UNSPECIFIED HYDRONEPHROSIS Qualifiers: Hydronephrosis type: with renal calculous obstruction Qualified Code(s): N13.2 - Hydronephrosis with renal and ureteral calculous obstruction (4) HTN (hypertension) Assessment/Plan: -normally on losartan, HCTZ, and metoprolol -holding HCTZ secondary to hyponatremia -continue metoprolol -will restart losartan -no thiazide diuretics Code(s): I10 - ESSENTIAL (PRIMARY) HYPERTENSION (5) Hypothyroid Assessment/Plan: -continue synthroid -TSH elevated but FT4 is normal -subclinical hypothyroidism secondary to stress -does not need adjustment of synthroid Code(s): E03.9 - HYPOTHYROIDISM, UNSPECIFIED (6) FEN -replace magnesium and potassium
[2017-04-14] MEDS ORDERED: LOSARTAN POTASSIUM 50 MG TABLET (FP) PO SCH (11:30)
--- NOTE | 2017-04-14 12:51 | PN ---
Progress Note, Physician History of Present Illness: Pt seen and examined at bedside. She is awake and alert. Urine from the nephrostomy tube is cleared up. - Current Medication List Current Medications: Active Medications Acetaminophen (Tylenol -) 650 mg PO Q4H PRN PRN Reason: FEVER OR PAIN Enoxaparin Sodium (Lovenox -) 40 mg SQ DAILY [facility] Last Admin: 04/14/17 10:02 Dose: Not Given Hydralazine HCl (Apresoline Injection -) 10 mg IVPB Q8H PRN PRN Reason: HYPERTENSION Last Admin: 04/13/17 09:27 Dose: 10 mg Sodium Chloride (Normal Saline -) 1,000 mls @ 75 mls/hr IV ASDIR [facility] Last Admin: 04/14/17 05:55 Dose: 75 mls/hr Levothyroxine Sodium (Synthroid -) 125 mcg PO DAILY@0700 [facility] Last Admin: 04/14/17 06:11 Dose: 125 mcg Losartan Potassium (Cozaar -) 100 mg PO DAILY [facility] Last Admin: 04/14/17 12:18 Dose: 100 mg Metoprolol Tartrate (Lopressor -) 25 mg PO HS [facility] Last Admin: 04/13/17 21:10 Dose: 25 mg Morphine Sulfate (Morphine Sulfate) 1 mg IVPUSH Q4H PRN PRN Reason: PAIN Last Admin: 04/13/17 06:05 Dose: 1 mg Ondansetron HCl (Zofran Injection) 4 mg IVPUSH Q6H PRN PRN Reason: NAUSEA Last Admin: 04/13/17 22:47 Dose: 4 mg Promethazine HCl (Phenergan Injection -) 25 mg IM Q6H PRN PRN Reason: NAUSEA AND/OR VOMITING - Objective Vital Signs: Vital Signs Temperature 98.3 F 04/14/17 06:40 Pulse Rate 74 04/14/17 06:40 Respiratory Rate 20 04/14/17 06:40 Blood Pressure 140/87 04/14/17 06:40 O2 Sat by Pulse Oximetry (%) 95 04/13/17 20:55 Constitutional: Yes: Calm Eyes: Yes: Conjunctiva Clear HENT: Yes: Atraumatic Neck: Yes: Supple Cardiovascular: Yes: S1, S2 Respiratory: Yes: CTA Bilaterally Gastrointestinal: Yes: Soft Genitourinary: Yes: Other (left nephrostomy) Musculoskeletal: Yes: WNL Edema: No Integumentary: Yes: WNL Neurological: Yes: Oriented Psychiatric: Yes: Oriented Labs: CBC, BMP 04/14/17 06:50 04/14/17 06:50 INR, PTT INR 1.14 (0.82-1.09) 04/13/17 08:40 Problem List - Problems (1) Hyponatremia Code(s): E87.1 - HYPO-OSMOLALITY AND HYPONATREMIA (2) Hydronephrosis Code(s): N13.30 - UNSPECIFIED HYDRONEPHROSIS Qualifiers: Hydronephrosis type: with renal calculous obstruction Qualified Code(s): N13.2 - Hydronephrosis with renal and ureteral calculous obstruction (3) Kidney stone on left side Code(s): N20.0 - CALCULUS OF KIDNEY Assessment/Plan Current Medications Generic Name Dose Route Start Last Admin Trade Name Freq PRN Reason Stop Dose Admin Acetaminophen 650 mg 04/12/17 16:50 Tylenol - PO Q4H PRN FEVER OR PAIN Enoxaparin Sodium 40 mg 04/13/17 10:00 04/14/17 10:02 Lovenox - SQ Not Given DAILY [facility] Hydralazine HCl 10 mg 04/13/17 07:59 04/13/17 09:27 Apresoline Injection - IVPB 10 mg Q8H PRN Administration HYPERTENSION Sodium Chloride 1,000 mls @ 75 mls/hr 04/12/17 22:30 04/14/17 05:55 Normal Saline - IV 75 mls/hr ASDIR [facility] Administration Levothyroxine Sodium 125 mcg 04/13/17 07:00 04/14/17 06:11 Synthroid - PO 125 mcg DAILY@0700 [facility] Administration Losartan Potassium 100 mg 04/14/17 11:30 04/14/17 12:18 Cozaar - PO 100 mg DAILY [facility] Administration Metoprolol Tartrate 25 mg 04/12/17 22:00 04/13/17 21:10 Lopressor - PO 25 mg HS [facility] Administration Morphine Sulfate 1 mg 04/12/17 16:50 04/13/17 06:05 Morphine Sulfate IVPUSH 1 mg Q4H PRN Administration PAIN Ondansetron HCl 4 mg 04/12/17 16:50 04/13/17 22:47 Zofran Injection IVPUSH 4 mg Q6H PRN Administration NAUSEA Promethazine HCl 25 mg 04/12/17 16:50 Phenergan Injection - IM Q6H PRN NAUSEA AND/OR VOMITING Laboratory Tests 04/14/17 04/14/17 06:50 06:50 Sodium 133 L Potassium 3.4 L Magnesium 1.7 L Free T4 1.05 Impression 1. hyponatremia 2. hydronephrosis 3. hx uterine cancer 4. nephrolithiasis 5. hypothyroidism 6. nausea 7. HTN Plan - replace potassium - replace mag - renal function improving - sodium is improved - agree with starting losartan - would not restart thiazide Dr Fernandez
[2017-04-14] MEDS ORDERED: PROPOFOL 20 ML ONE ×2 (17:11)
[2017-04-14] MEDS ORDERED: LEVOFLOXACIN 500 MG IVPB 500 MG/100 ML BAG IVPB ONE (17:14)
[2017-04-14] MEDS ORDERED: SUCCINYLCHOLINE CHLORIDE 200 MG/10 ML VIAL ONE (17:15)
[2017-04-14] MEDS ORDERED: ePHEDrine SULFATE 50 MG/1 ML AMPULE ONE (17:16)
[2017-04-14] MEDS ORDERED: LEVOFLOXACIN 500 MG PREMIX BAG IVPB ONE (17:55)
[2017-04-14] MEDS ORDERED: DESFLURANE GAS 240 ML BOTTLE IH ONE (18:11)
--- NOTE | 2017-04-14 18:36 | OP ---
Operative Note - Note: Operative Date: 04/14/17 Pre-Operative Diagnosis: left ureteral stone Operation: cystoscopy/left retrograde pyelogram/left ureteroscopic stone manipulation/left stent placement/left nephrostomy tube removal Findings: left ureteral stone migrated proximally secondary to retrograde pyelogram/ ureteroscopy to level of stone difficult due to previous surgery and pelvic radiation Post-Operative Diagnosis: Same as Pre-op Surgeon: Tono Schulz Anesthesia: General Drains & Tubes with Location: 6 fr/24 cm left ureteral stent Operative Report Dictated: Yes
[2017-04-14] MEDS ORDERED: ONDANSETRON 4 MG/2 ML VIAL IVPUSH PRN (18:48)
[2017-04-14] MEDS ORDERED: ACETAMINOPHEN 325 MG TABLET (FP) PO PRN (18:57)
[2017-04-14] MEDS ORDERED: SODIUM CHLORIDE 1,000 ML IV SCH (19:00)
[2017-04-14] MEDS ORDERED: METOPROLOL TARTRATE 25 MG TABLET (FP) PO SCH (22:00)
--- NOTE | 2017-04-15 01:46 | OP ---
DATE OF OPERATION: 04/14/2017 PREOPERATIVE DIAGNOSIS: Left ureteral stone. POSTOPERATIVE DIAGNOSIS: Left ureteral stone. PROCEDURE: Cystoscopy, left retrograde pyelogram, left ureteroscopic stone manipulation, left ureteral stent placement, left nephrostomy tube removal. ATTENDING: Tono Cruz MD ANESTHESIA: General. DESCRIPTION OF PROCEDURE: The patient was brought to the operating room and placed in the supine position on the operating room table. General anesthesia was administered. At this point, the patient was placed in the dorsal lithotomy position, prepped and draped in the usual sterile manner. Nephrostomy tube was clamped. Cystoscopy was performed with no evidence of neoplasm within the bladder was noted. There was no evidence of trauma to the ureteral orifice consistent with a stone passage. The stone had been identified both by CT scan and on placement of the nephrostomy tube with an antegrade nephrostogram. A retrograde pyelogram was performed and was presumed to be near, but moving upwards. It was found later to be the stone. Ureteroscopy was performed. The patient has a history of uterine cancer and is status post a hysterectomy. It was in duration of the ureter and attempts at accessing the proximal upper ureter was successful and was not aggressively pursued due to the high risk of perforating the ureter. A wire had been placed up to the left kidney. Flexible ureteroscopy at this time with the presence of a nephrostogram would have allowed for fluid collection around the kidney. Therefore, it was decided to stent the patient at this point as the stone had been manipulated into the renal pelvis at this point. A 6-Lith[place]ian 24-cm stent was placed over the wire, utilizing the Seldinger technique. The nephrostomy tube was then removed. Fluoroscopy showed adequate position of the left ureteral stent. The patient will be followed up for a left extracorporeal shock wave lithotripsy at a later date. The stent will be left in place for a period of 1-2 weeks. No complications were noted. The patient tolerated the procedure very well. TONO CRUZ M.D. /[id number]
[2017-04-15] MEDS: SODIUM CHLORIDE 1,000 ML IV SCH (06:25)
[2017-04-15] MEDS ORDERED: LEVOTHYROXINE NA 125 MCG TABLET (FP) PO SCH (07:00)
[2017-04-15 07:17] LABS: BASOPHIL 0.9 % (0-2.0); EOSINOPHIL 2.3 % (0-4.5); MCHC 32.2 g/dl (32.0-36.0); MEAN CELL VOLUME 61.8 fl (80-96); MEAN PLT VOLUME 8.2 fl (7.5-11.1); NEUTROPHILS 77.4 % (42.8-82.8); PLATELET COUNT 245 K/MM3 (134-434); RDW 15.7 % (11.6-15.6); WHITE BLOOD COUNT 8.1 K/mm3 (4.0-10.0)
[2017-04-15 07:34] LABS: ALBUMIN 2.9 g/dl (3.4-5.0); ANION GAP 10 (8-16); CALCIUM 7.9 mg/dL (8.5-10.1); CO2 22 mmol/L (21-32); GLUCOSE,RANDOM 84 mg/dL (74-106)
[2017-04-15 07:37] LABS: ALK PHOS 50 U/L (45-117); BILIRUBIN,TOTAL 0.5 mg/dL (0.2-1.0); CREATININE 0.9 mg/dL (0.55-1.02); PHOSPHOROUS 2.3 mg/dL (2.5-4.9); SGOT/AST 16 U/L (15-37); SGPT/ALT 20 U/L (12-78); TOT PROT 5.8 g/dl (6.4-8.2)
[2017-04-15 07:42] LABS: MCH 19.9 pg (25.7-33.7)
--- NOTE | 2017-04-15 08:22 | CONSULT ---
Consult - text type - Consultation Consultation Note: Urology cc: left ureteral stone s/p stent s/p removal of nephrostomy tube hpi: Patient is doing well. The patient does complain of urinary frequency but is otherwise without colic, nausea, vomiting or fever PE percutaneous nephrostomy tube site dry no left CVAT\ abd is soft and non-tender imp left ureteral stone s/p stent plan patient is urologically stable for discharge antibiotics are not necessary for discharge patient will be scheduled for left extracorporeal shockwave lithotripsy as an outpatient on Wednesday at [facility] patient will pass by my office after her discharge to scrap picker samples of myrbetriq to address her urinary frequency secondary to the stent
[2017-04-15] MEDS ORDERED: PATIENT'S OWN MEDICATION (NON-FORMULARY) (Losartan/Hydrochlorothiazide [Losartan-Hctz 100- PO SCH (10:00)
[2017-04-15] MEDS ORDERED: LOSARTAN POTASSIUM 50 MG TABLET (FP) PO SCH (10:00)
[2017-04-15] MEDS ORDERED: PT OWN MED DRAWER 7, Y5N ONE (10:01)
[2017-04-15 10:28] VITALS: BP 153/87; PULSE 78; TEMP 98.4
--- NOTE | 2017-04-15 13:13 | PN ---
Progress Note, Physician History of Present Illness: Pt seen and examined at bedside. She is awake and alert. She denies flank pain. She denies fevers or chills. She is eager to go home. I discussed diet, fluid intake and medications with her. - Current Medication List Current Medications: Active Medications Acetaminophen (Tylenol -) 650 mg PO Q4H PRN PRN Reason: FEVER OR PAIN Fentanyl (Sublimaze Injection -) 50 mcg IVPUSH [id number] PRN PRN Reason: PAIN Hydralazine HCl (Apresoline Injection -) 10 mg IVPB Q8H PRN PRN Reason: HYPERTENSION Last Admin: 04/13/17 09:27 Dose: 10 mg Sodium Chloride (Normal Saline -) 1,000 mls @ 100 mls/hr IV ASD[facility] Last Admin: 04/14/17 19:15 Dose: 0 mls Sodium Chloride (Normal Saline -) 1,000 mls @ 75 mls/hr IV ASDIR [facility] Last Admin: 04/15/17 06:25 Dose: 75 mls/hr Levothyroxine Sodium (Synthroid -) 125 mcg PO DAILY@0700 [facility] Last Admin: 04/15/17 06:21 Dose: 125 mcg Losartan Potassium (Cozaar -) 100 mg PO DAILY [facility] Last Admin: 04/15/17 10:04 Dose: 100 mg Metoprolol Tartrate (Lopressor -) 25 mg PO HS [facility] Last Admin: 04/14/17 22:24 Dose: 25 mg Non-Formulary Medication (Losartan/Hydrochlorothiazide [Losartan-Hctz 100-12.5 Mg Tab]) 1 tab PO DAILY [facility] Ondansetron HCl (Zofran Injection) 4 mg IVPUSH Q6H PRN PRN Reason: NAUSEA AND/OR VOMITING - Objective Vital Signs: Vital Signs Temperature 98.4 F 04/15/17 10:00 Pulse Rate 78 04/15/17 10:00 Respiratory Rate 18 04/15/17 10:00 Blood Pressure 153/87 04/15/17 10:00 O2 Sat by Pulse Oximetry (%) 97 04/15/17 09:00 Constitutional: Yes: Calm Eyes: Yes: Conjunctiva Clear HENT: Yes: Atraumatic Neck: Yes: Supple Cardiovascular: Yes: S1, S2 Respiratory: Yes: CTA Bilaterally Gastrointestinal: Yes: WNL Genitourinary: Yes: WNL Musculoskeletal: Yes: WNL Edema: No Neurological: Yes: Oriented Psychiatric: Yes: Oriented Labs: CBC, BMP 04/15/17 06:00 04/15/17 06:00 INR, PTT INR 1.14 (0.82-1.09) 04/13/17 08:40 Problem List - Problems (1) Hyponatremia Code(s): E87.1 - HYPO-OSMOLALITY AND HYPONATREMIA (2) Hydronephrosis Code(s): N13.30 - UNSPECIFIED HYDRONEPHROSIS Qualifiers: Hydronephrosis type: with renal calculous obstruction Qualified Code(s): N13.2 - Hydronephrosis with renal and ureteral calculous obstruction (3) Kidney stone on left side Code(s): N20.0 - CALCULUS OF KIDNEY Assessment/Plan Current Medications Generic Name Dose Route Start Last Admin Trade Name Freq PRN Reason Stop Dose Admin Acetaminophen 650 mg 04/14/17 18:57 Tylenol - PO Q4H PRN FEVER OR PAIN Fentanyl 50 mcg 04/14/17 18:48 Sublimaze Injection - IVPUSH [id number] PRN PAIN Hydralazine HCl 10 mg 04/13/17 07:59 04/13/17 09:27 Apresoline Injection - IVPB 10 mg Q8H PRN Administration HYPERTENSION Sodium Chloride 1,000 mls @ 100 mls/hr 04/14/17 19:00 04/14/17 19:15 Normal Saline - IV 0 mls ASDIR [facility] Administration Sodium Chloride 1,000 mls @ 75 mls/hr 04/14/17 18:57 04/15/17 06:25 Normal Saline - IV 75 mls/hr [facility] Administration Levothyroxine Sodium 125 mcg 04/15/17 07:00 04/15/17 06:21 Synthroid - PO 125 mcg DAILY@0700 [facility] Administration Losartan Potassium 100 mg 04/15/17 10:00 04/15/17 10:04 Cozaar - PO 100 mg DAILY [facility] Administration Metoprolol Tartrate 25 mg 04/14/17 22:00 04/14/17 22:24 Lopressor - PO 25 mg HS [facility] Administration Non-Formulary Medication 1 tab 04/15/17 10:00 Losartan/Hydrochlorothiazide [Losartan-Hctz 100-12.5 Mg Tab] PO DAILY [facility] Ondansetron HCl 4 mg 04/14/17 18:48 Zofran Injection IVPUSH Q6H PRN NAUSEA AND/OR VOMITING Impression 1. hyponatremia 2. hydronephrosis 3. hx uterine cancer 4. nephrolithiasis 5. hypothyroidism 6. nausea 7. HTN Plan - sodium is improved - will stop fluids, this should help bring bp down - cont losartan - would not restart hctz - if pt developed edema in the future, perhaps a different diuretic can be used - discussed diet and fluid intake - nephrostomy tube removed - pt will follow with urology as outpt Dr Fernandez
--- NOTE | 2017-04-15 13:28 | DS ---
Physical Examination Vital Signs: Vital Signs Temperature 36.9 C 04/15/17 10:00 Pulse Rate 78 04/15/17 10:00 Respiratory Rate 18 04/15/17 10:00 Blood Pressure 153/87 04/15/17 10:00 O2 Sat by Pulse Oximetry (%) 97 04/15/17 09:00 Constitutional: Yes: Well Nourished, No Distress, Calm Cardiovascular: Yes: Regular Rate and Rhythm. No: Gallop, Murmur, Rub Respiratory: Yes: Regular, CTA Bilaterally. No: Rales, Rhonchi, Wheezes Gastrointestinal: Yes: Normal Bowel Sounds, Soft. No: Distention, Tenderness Extremities: Yes: WNL Edema: No Labs: CBC, BMP 04/15/17 06:00 04/15/17 06:00 Discharge Summary Reason For Visit: FLANK PAIN Current Active Problems HTN (hypertension) (Acute) Hydronephrosis (Acute) Hypokalemia (Acute) Hypomagnesemia (Acute) Hyponatremia (Acute) Hypothyroid (Acute) Kidney stone on left side (Acute) Hospital Course: (1) Hyponatremia Code(s): E87.1 - HYPO-OSMOLALITY AND HYPONATREMIA (2) Kidney stone on left side Code(s): N20.0 - CALCULUS OF KIDNEY (3) Hydronephrosis Code(s): N13.30 - UNSPECIFIED HYDRONEPHROSIS Qualifiers: Hydronephrosis type: with renal calculous obstruction Qualified Code(s): N13.2 - Hydronephrosis with renal and ureteral calculous obstruction (4) HTN (hypertension) Code(s): I10 - ESSENTIAL (PRIMARY) HYPERTENSION (5) Hypothyroid Code(s): E03.9 - HYPOTHYROIDISM, UNSPECIFIED (6) Hypokalemia Code(s): E87.6 - HYPOKALEMIA (7) Hypomagnesemia Code(s): E83.42 - HYPOMAGNESEMIA Ms Louie is a pleasant 86 year old female who came in with symptomatic hyponatremia and ureterolithiasis with hydronephrosis. She was admitted to the hospital and seen by nephrology. Her thiazide diuretic was stopped and she was hydrated with NS. Her sodium corrected at the right rate, and she was taken to IR for nephrostomy tube placement to relieve her pain. She tolerated this well and her pain resolved, her sodium had corrected where it was safe for her to undergo cystoscopy with stent placement. This was performed without complications. She is safe for discharge home today. HCTZ was discontinued this admission, patient should not be on thiazide diuretics as they cause/exacerbate hyponatremia. 36 minutes spent in preparation of this discharge Condition: Good - Instructions Diet, Activity, Other Instructions: resume previous diet and activity. Stop hydrochlorothiazide as can cause hyponatremia Referrals: Jeyson Santos MD [Primary Care Provider] - Param Fernandez MD [Staff Physician] - Tono Schulz MD [Staff Physician] - Disposition: HOME - Home Medications Comprehensive Discharge Medication List: Ambulatory Orders Levothyroxine [Synthroid -] 125 mcg PO DAILY 11/01/15 Metoprolol Tartrate [Lopressor -] 25 mg PO HS 11/01/15 Acetaminophen [Tylenol] 325 mg PO QID #30 tablet 04/08/17 Oxycodone HCl 0.5 tablet PO QID PRN #8 tablet MDD 2 tablets 04/08/17 Tamsulosin HCl [Flomax -] 0.4 mg PO DAILY #7 capsule 04/08/17 Cholecalciferol (Vitamin D3) [Vitamin D3] 1,000 unit PO DAILY 04/12/17 Losartan Potassium [Cozaar -] 100 mg PO DAILY #60 tablet 04/15/17
--- NOTE | 2017-04-16 19:03 | PATH ---
Surgical Pathology Report Patient Name: MATTHEW GALLEGOS Med. Rec. #: [id number] /Age/Gender: 1930 (Age: 86) / F Account: [id number] Location: [facility] MED/SURG Taken: 04/14/2017 Received: 04/15/2017 Reported: 04/16/2017 Physicians: Tono Santos M.D. Copy To: [id number] Specimen(s) Received NEPHROSTOMY TUBE Clinical History Left ureteral stones Final Diagnosis NEPHROSTOMY TUBE, LEFT, REMOVAL: NEPHROSTOMY TUBE. MACROSCOPIC DIAGNOSIS. Electronically Signed Lisa Reynaga M.D. Gross Description Received fresh labeled "left nephrostomy tube," are 2 blue portions of tubing measuring 17.5 and 23.5 cm in length. No soft tissue is present. No sections are submitted, gross only. /04/15/2017 saudi04/15/2017
== END 2017-04-15 14:20 | disposition home or self-care (01) | DRG 694 ==
LOC: SUPCPDRO 10:55 → FER 10:55 → J8W 16:03
PROVIDERS: ADMIT Internal Medicine Geriatric Medicine; ATTEND Internal Medicine Geriatric Medicine
PROC: 0TP580Z Removal of Drainage Device from Kidney, Via Natural or Artificial Opening Endoscopic (ICD-10-PCS; 2017-04-14)
PROC: BT1FZZZ Fluoroscopy of Left Kidney, Ureter and Bladder (ICD-10-PCS; 2017-04-14)
PROC: 0T778DZ Dilation of Left Ureter with Intraluminal Device, Via Natural or Artificial Opening Endoscopic (ICD-10-PCS; principal; 2017-04-14 17:19)
DX: N13.2 Hydronephrosis with renal and ureteral calculous obstruction (principal); E87.1 Hypo-osmolality and hyponatremia; I10 Essential (primary) hypertension; E03.9 Hypothyroidism, unspecified; Z85.42 Personal history of malignant neoplasm of other parts of uterus; Z90.710 Acquired absence of both cervix and uterus; E83.42 Hypomagnesemia; E87.6 Hypokalemia; Z93.6 Other artificial openings of urinary tract status
CPT/HCPCS: 36415; 50432; 76000-TC; 76098-TC; 76775-TC; 76998-TC; 80048; 80053; 81003; 81015; 82436; 82533; 83735; 83930; 83935; 84100; 84133; 84300; 84439; 84443; 85025; 85610; 87070; 87075; 87086; 87205; 87899; 88300-TC; 93005; 94760; 97116-GP; 97161-GP; 99283-25; A4358; C1729; C1769

== ENCOUNTER 2017-04-19 07:09 | Day surgery (SDC) | payer OTHER, BC ==
[2017-04-19 07:35] VITALS: TEMP 98.1; BMI 28.5
[2017-04-19] MEDS ORDERED: MIDAZOLAM HCL 2 MG/2 ML SINGLE DOSE VIAL ONE (08:33)
[2017-04-19] MEDS ORDERED: ONDANSETRON 4 MG/2 ML VIAL IVPUSH PRN (08:55)
[2017-04-19] MEDS ORDERED: ACETAMINOPHEN 325 MG TABLET (FP) PO PRN (08:55)
[2017-04-19] MEDS ORDERED: LACTATED RINGERS SOLUTION 1,000 ML IV SCH (09:00)
[2017-04-19] MEDS ORDERED: LEVOFLOXACIN 500 MG PREMIX BAG IVPB ONE (09:02)
[2017-04-19 12:13] VITALS: BP 141/76; PULSE 76
--- NOTE | 2017-04-19 15:23 | OP ---
Operative Note - Note: Operative Date: 04/19/17 Pre-Operative Diagnosis: left renal stone Operation: left eswl Findings: 8mm x 8mm left lower pole stone Post-Operative Diagnosis: Same as Pre-op Anesthesia: Fractional
--- NOTE | 2017-04-19 21:16 | OP ---
DATE OF OPERATION: 04/19/2017 PREOPERATIVE DIAGNOSIS: Left renal stone. POSTOPERATIVE DIAGNOSIS: Left renal stone. PROCEDURE: Left extracorporeal shock wave lithotripsy. ATTENDING SURGEON: Tono Schulz M.D. ANESTHESIA: Fractional. OPERATION: Patient was brought in the operating room, placed in a supine position on the operating room table. Ultrasonography and fluoroscopy were performed. A left ureteral stent was identified. The patient had an 8 mm x 8 mm left lower pole stone identified. Fractional anesthesia was administered as well as intravenous Levaquin. At this point, shock wave lithotripsy was then performed, 3000 impulses at 18 to 20 joules of power was administered to the stone with excellent fragmentation under real time fluoroscopy and ultrasonography. The patient tolerated the procedure very well. No complications were noted. DISPOSITION: Disposition of the patient to the recovery room. TONO CRUZ M.D. [id number]
== END 2017-04-19 12:16 | disposition home or self-care (01) ==
LOC: JASU-SURG 07:09
PROVIDERS: ATTEND Urology
PROC: 0TF4XZZ Fragmentation in Left Kidney Pelvis, External Approach (ICD-10-PCS; principal; 2017-04-19 08:45)
DX: N20.0 Calculus of kidney (principal)

== ENCOUNTER 2017-05-17 06:42 | Day surgery (SDC) | payer OTHER, BC ==
[2017-05-13 11:48] VITALS: BMI 28.3
[2017-05-17] MEDS ORDERED: PROPOFOL 20 ML ONE (07:53)
[2017-05-17] MEDS ORDERED: SUCCINYLCHOLINE CHLORIDE 200 MG/10 ML VIAL ONE (07:54)
[2017-05-17] MEDS ORDERED: MIDAZOLAM HCL 2 MG/2 ML SINGLE DOSE VIAL ONE (07:54)
[2017-05-17] MEDS ORDERED: ATROPINE SO4 0.4 MG/1 ML VIAL ONE (07:55)
[2017-05-17] MEDS ORDERED: LIDOCAINE HCL/PF 2% SDV 5ML VIAL ONE (07:56)
[2017-05-17] MEDS ORDERED: GENTAMICIN SO4 80 MG/2 ML VIAL IVPB ONE (08:27)
[2017-05-17] MEDS ORDERED: GENTAMICIN SO4 80 MG/2 ML VIAL ONE (08:32)
[2017-05-17] MEDS ORDERED: ePHEDrine SULFATE 50 MG/1 ML AMPULE ONE (08:50)
[2017-05-17] MEDS ORDERED: DEXAMETHASONE SOD PHOSPHATE 4 MG/1 ML VIAL ONE (08:59)
--- NOTE | 2017-05-17 10:22 | OP ---
Operative Note - Note: Operative Date: 05/17/17 Pre-Operative Diagnosis: left hydronephrosis with obstruction Operation: cystoscopy and left retrograde pyelogram Findings: hydronephrosis with delayed drainage without evidence of obstructing stone Post-Operative Diagnosis: Same as Pre-op Surgeon: Tono Schulz Anesthesia: General
[2017-05-17 10:27] VITALS: TEMP 97.8
[2017-05-17 12:24] VITALS: BP 155/59; PULSE 64
--- NOTE | 2017-05-17 20:28 | OP ---
DATE OF OPERATION: 05/17/2017 PREOPERATIVE DIAGNOSIS: Left hydronephrosis. POSTOPERATIVE DIAGNOSIS: Left hydronephrosis. PROCEDURE: Cystoscopy and left retrograde pyelogram. INDICATION FOR PROCEDURE: The patient is an 87-year-old female with a history of left ureteral stone status post left extracorporeal shock wave lithotripsy. The patient has a history of uterine cancer and is status post chemotherapy and radiation therapy. The patient presented with renal colic after shock wave lithotripsy. The patient had hydronephrosis noted on sonograms. A renal scan with Lasix showed an obstructive pattern involving the left kidney. The patient was brought in today for a left retrograde pyelogram. Patient was given all risks and benefits and signed an informed consent. DESCRIPTION OF PROCEDURE: The patient was brought in the operating room, placed in a supine position on the operating room table. General anesthesia was administered as well as a dose of gentamicin. The patient was placed in the dorsal lithotomy position, prepped and draped in the usual sterile manner. Cystoscopy was performed. No evidence of stones or neoplasm within the bladder was noted. A retrograde pyelogram was remarkable for a 3/5 hydronephrosis with fullness of the upper ureter. There was narrowing of the [id number] ureter. This is most likely secondary to radiation effect. The patient was observed and was noted to have drainage of the left kidney. The drainage was slow. No obvious sign of obstruction is seen other than the changes involving the ureter. It was decided to avoid ureteroscopy and stenting for the patient. 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 Patient will be advised of this. Patient tolerated the procedure very well. No complications were noted. The disposition of the patient was to the recovery room. Igor [id number]
== END 2017-05-17 11:30 | disposition home or self-care (01) ==
LOC: JASU-SURG 06:42
PROVIDERS: ATTEND Urology
PROC: BT0BZZZ Plain Radiography of Bladder and Urethra (ICD-10-PCS; principal; 2017-05-17 08:00)
DX: N13.30 Unspecified hydronephrosis (principal); Z85.42 Personal history of malignant neoplasm of other parts of uterus; Z92.21 Personal history of antineoplastic chemotherapy; Z92.3 Personal history of irradiation; Z87.442 Personal history of urinary calculi
CPT/HCPCS: 76000-TC; 94760